=== PATIENT | male | born 1980 | race Caucasian/White ===

== ENCOUNTER 2017-03-28 12:17 | Emergency (ER) | payer MEDICAID, OTHER ==
[2017-03-28 12:25] VITALS: BMI 25.3
[2017-03-28] MEDS ORDERED: Sodium Chloride 0.9% 1,000 ML IV STA (12:29)
--- NOTE | 2017-03-28 12:36 | ED PDOC ---
Arrival/HPI - General Time Seen by Provider: 03/28/17 12:23 Historian: Patient - History of Present Illness Narrative History of Present Illness (Text): 03/28/17 12:25 Moreno Fuller is a 36 year old male who presents to the emergency department for acute onset left sided flank pain starting two hours ago. Patient states pain radiates to the left groin and scrotum. Symptoms are accompanied with nausea but no vomiting or diarrhea. Patient also reports urinary frequency and urgency but no hematuria. Patient denies any fever, trauma, any other complaints , or any history of smoking or drinking. PMD: None Reported. Time/Duration: 1-3 hours Symptom Onset: Sudden Symptom Course: Unchanged Activities at Onset: Light Context: Home Associated Symptoms (Text): 03/28/17 12:46 2 hours of left flank pain with radiation into the left groin and left scrotum. Some nausea but no vomiting or diarrhea. Some urinary symptoms. He has never experienced this previously. Severe distress. Past Medical History - Provider Review Nursing Documentation Reviewed: Yes - Infectious Disease Hx of Infectious Diseases: None - Tetanus Immunization Tetanus Immunization: Unknown - Past Medical History Past Medical History: No Previous - Hematological/Oncological Hx Hepatitis C: Yes - Psychiatric Hx Depression: No Hx Emotional Abuse: No Hx Physical Abuse: No Hx Substance Use: No - Past Surgical History Past Surgical History: No Previous - Surgical History Hx Appendectomy: Yes - Anesthesia Hx Anesthesia: Yes Hx Anesthesia Reactions: No Hx Malignant Hyperthermia: No - Suicidal Assessment Feels Threatened In Home Enviroment: No Family/Social History - Physician Review Nursing Documentation Reviewed: Yes Family/Social History: No Known Family HX Smoking Status: Never Smoked Hx Alcohol Use: Yes Frequency of alcohol use: Socially Hx Substance Use: No Hx Substance Use Treatment: No Allergies/Home Meds Allergies/Adverse Reactions: Allergies No Known Allergies Allergy (Verified 03/28/17 12:30) Review of Systems - Physician Review All systems were reviewed & negative as marked: Yes - Review of Systems Constitutional: Normal. absent: Fevers Respiratory: Normal. absent: SOB, Cough Cardiovascular: Normal. absent: Chest Pain Gastrointestinal: Nausea, Other. absent: Diarrhea, Vomiting Genitourinary Male: Frequency, Other (Urgency). absent: Dysuria, Hematuria Musculoskeletal: Other (Left Sided Flank Pain radiating to the Left Groin and Scrotum) Skin: Normal Neurological: Normal Physical Exam Vital Signs Reviewed: Yes Vital Signs Temp Pulse Resp BP Pulse Ox 03/28/17 12:17 98 F 75 20 135/71 98 Temperature: Afebrile Blood Pressure: Normal Pulse: Regular Respiratory Rate: Normal Appearance: Positive for: Well-Appearing, Non-Toxic, Uncomfortable Pain Distress: Severe Mental Status: Positive for: Alert and Oriented X 3 - Systems Exam Head: Present: Atraumatic, Normocephalic Pupils: Present: PERRL Conjunctiva: Present: Normal Mouth: Present: Moist Mucous Membranes Pharnyx: No: ERYTHEMA, EXUDATE, TONSILS ENLARGED Neck: Present: Normal Range of Motion Respiratory/Chest: Present: Clear to Auscultation, Good Air Exchange. No: Respiratory Distress, Accessory Muscle Use Cardiovascular: Present: Regular Rate and Rhythm, Normal S1, S2. No: Murmurs Abdomen: Present: Normal Bowel Sounds. No: Tenderness, Distention, Peritoneal Signs Upper Extremity: Present: Normal Inspection. No: Cyanosis, Edema Lower Extremity: Present: Normal Inspection. No: Edema Neurological: Present: GCS=15, CN II-XII Intact, Speech Normal, Motor Func Grossly Intact Skin: Present: Warm, Dry, Normal Color. No: Rashes Psychiatric: Present: Alert, Oriented x 3, Normal Insight, Normal Concentration Medical Decision Making ED Course and Treatment: 03/28/17 12:25 Impression: 36 year old male with left flank pain radiating to the left groin and scrotum. Plan: -- Abd & Pel CT -- Labs, Urine Culture, Urinalysis -- IV Fluids -- Toradol -- Zofran -- Reassess and disposition Prior Visits: Notes and results from previous visits were reviewed. Patient was last seen in the emergency department on 01/05/14 for nausea, diarrhea, and abdominal cramps. Progress Notes: 03/28/17 14:05 Symptoms markedly improved. 03/28/17 14:01 Procedure: Abdomen and Pelvis CT Dictator: Kayden Wu MD Impression: Obstructing 5 mm calculus at left ureterovesical junction. Multiple nonobstructing left renal calculi. Solitary nonobstructing right lower pole renal calculus. No other acute abnormality. - Lab Interpretations Lab Results: 03/28/17 12:53 03/28/17 12:53 Lab Results 03/28/17 12:53: Sodium 137, Potassium 4.1, Chloride 104, Carbon Dioxide 26, Anion Gap 11, BUN 15, Creatinine 0.7, Est GFR ( Amer) > 60, Est GFR (Non- Af Amer) > 60, Random Glucose 95, Calcium 9.3, Total Bilirubin 0.8, AST 44, ALT 70 H, Alkaline Phosphatase 87, Total Protein 7.8, Albumin 4.4, Globulin 3.4, Albumin/Globulin Ratio 1.3, Lipase 115 03/28/17 12:53: WBC 4.7, RBC 5.39, Hgb 15.6, Hct 44.0, MCV 81.6, MCH 28.9, MCHC 35.5, RDW 12.6, Plt Count 227, MPV 9.1, Neutrophils % (Manual) 24 L, Lymphocytes % (Manual) 69 H, Atypical Lymphs % 2 H, Monocytes % (Manual) 3, Eosinophils % (Manual) 2 03/28/17 12:38: Urine Color Yellow, Urine Appearance Clear, Urine pH 6.0, Ur Specific [place] >= 1.030, Urine Protein 30 H, Urine Glucose (UA) Negative, Urine Ketones Negative, Urine Blood Trace-intact H, Urine Nitrate Negative, Urine Bilirubin Negative, Urine Urobilinogen 1.0 H, Ur Leukocyte Esterase Negative, Urine RBC 0 - 2, Urine WBC 0 - 2, Ur Epithelial Cells 0 - 2, Urine Bacteria Small I have reviewed the lab results: Yes - RAD Interpretation Narrative RAD Interpretations (Text): 03/28/17 14:01 Procedure: Abdomen and Pelvis CT Dictator: Kayden Wu MD FINDINGS: LOWER THORAX: Unremarkable. LIVER: Unremarkable. No gross lesion or ductal dilatation. GALLBLADDER AND BILE DUCTS: Unremarkable. PANCREAS: Unremarkable. No gross lesion or ductal dilatation. SPLEEN: Unremarkable. ADRENALS: Unremarkable. No mass. KIDNEYS AND URETERS: 4 mm nonobstructing right lower pole renal calculus. Multiple nonobstructing left renal calculi, largest 7 mm. Mild left hydroureter and minimal left hydronephrosis. Obstructing 5 mm calculus at the ureterovesical junction. No renal mass. No right hydronephrosis. VASCULATURE: Unremarkable. No aortic aneurysm. BOWEL: Transverse colonic diverticulosis without evidence of diverticulitis. No bowel obstruction. APPENDIX: Not identified. No secondary findings to suggest acute appendicitis. PERITONEUM: Unremarkable. No free fluid. No free air. LYMPH NODES: Unremarkable. No enlarged lymph nodes. BLADDER: Decompressed REPRODUCTIVE: Normal prostate BONES: No acute fracture. OTHER FINDINGS: None. Impression: Obstructing 5 mm calculus at left ureterovesical junction. Multiple nonobstructing left renal calculi. Solitary nonobstructing right lower pole renal calculus. No other acute abnormality. 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 - Medication Orders Current Medication Orders: Discontinued Medications Sodium Chloride (Sodium Chloride 0.9%) 1,000 mls @ 1,000 mls/hr IV .Q1H STA Stop: 03/28/17 13:28 Last Admin: 03/28/17 12:48 Dose: 1,000 mls/hr Ketorolac Tromethamine (Toradol) 30 mg IVP STAT STA Stop: 03/28/17 12:30 Last Admin: 03/28/17 12:50 Dose: 30 mg Ondansetron HCl (Zofran Inj) 4 mg IVP STAT STA Stop: 03/28/17 12:30 Last Admin: 03/28/17 12:51 Dose: 4 mg - Jossue Statement The provider has reviewed the documentation as recorded by the Jossue Roberson Provider Attestation: All medical record entries made by the Jossue were at my direction and personally dictated by me. I have reviewed the chart and agree that the record accurately reflects my personal performance of the history, physical exam, medical decision making, and the department course for this patient. I have also personally directed, reviewed, and agree with the discharge instructions and disposition. Disposition/Present on Arrival - Present on Arrival Any Indicators Present on Arrival: No History of DVT/PE: No History of Uncontrolled Diabetes: No Urinary Catheter: No History of Decub. Ulcer: No History Surgical Site Infection Following: None - Disposition Have Diagnosis and Disposition been Completed?: Yes Diagnosis: Renal colic on left side, Kidney stone on left side Disposition: HOME/ ROUTINE Disposition Time: 14:06 Patient Plan: Discharge Patient Problems: Current Active Problems Problem Status Onset Kidney stone on left side Acute Renal colic on left side Acute Condition: IMPROVED Discharge Instructions (ExitCare): Renal Colic (ED) Additional Instructions: Increase fluids. Follow-up with urologist. Follow-up in the ER as needed. Prescriptions: oxyCODONE/Acetaminophen [Percocet 5/325 mg Tab] 1 ea PO Q6 #15 tab Ondansetron [Zofran Odt] 4 mg SL Q6 #20 odt Referrals: Jean Paul Gipson, [Primary Care Provider] - Follow up with primary Marcus Max MD [Staff Provider] - Follow up with primary Forms: WORK NOTE
[2017-03-28 12:40] VITALS: TEMP 98
[2017-03-28 12:45] LABS: URINE BILIRUBIN NEGATIVE (NEGATIVE); URINE BLOOD TRACE-INTACT (NEGATIVE); URINE GLUCOSE (UA) NEGATIVE (NEGATIVE); URINE KETONE NEGATIVE (NEGATIVE); URINE LEUKOCYTE ESTERASE NEGATIVE Leu/uL (NEGATIVE); URINE PROTEIN 30 mg/dL (<30 mg/dL)
[2017-03-28 13:02] LABS: URINE APPEARANCE CLEAR (CLEAR); URINE COLOR YELLOW (YELLOW)
[2017-03-28 13:05] LABS: MEAN CELL VOLUME 81.6 fL (80.0-105.0); MEAN CORPUSCULAR HEMOGLOBIN 28.9 pg (25.0-35.0); MEAN CORPUSCULAR HGB CONC 35.5 g/dl (31.0-37.0); MEAN PLATELET VOLUME 9.1 fl (7.0-11.0); PLATELET COUNT 227 10^3/uL (120.0-450.0); RED CELL DISTRIBUTION WIDTH 12.6 % (11.5-14.5); WHITE BLOOD COUNT 4.7 10^3/ul (4.5-11.0)
[2017-03-28 13:07] LABS: ADD MANUAL DIFF? YES
[2017-03-28 13:09] LABS: AST/SGOT 44 U/L (15-59); BLOOD UREA NITROGEN 15 mg/dL (7-21); CALCIUM 9.3 mg/dL (8.4-10.5); GFR AFRICAN-AMERICAN > 60; LIPASE 115 U/L (23-300)
[2017-03-28 13:23] LABS: ATYPICAL LYMPHOCYTE 2 % (0.0-0.0); EOSINOPHIL 2 % (0.0-3.0); NEUTROPHIL 24 % (50.0-70.0)
[2017-03-28 13:26] LABS: URINE BACTERIA SMALL (NEG); URINE EPITHELIAL CELLS 0 - 2 /hpf (0-5); URINE RBC 0 - 2 /hpf (0-2); URINE WBC 0 - 2 /hpf (0-6)
[2017-03-28 13:41] LABS: ALB/GLOB RATIO 1.3 (1.1-1.8); ALKALINE PHOSPHATASE 87 U/L (38-133); ALT/SGPT 70 U/L (7-56); BILIRUBIN,TOTAL 0.8 mg/dL (0.2-1.3); CARBON DIOXIDE 26 mmol/L (21-33); GLUCOSE,RANDOM 95 mg/dL (70-110); POTASSIUM 4.1 mmol/L (3.6-5.0); SODIUM 137 mmol/L (132-148); TOTAL PROTEIN 7.8 g/dL (5.8-8.3)
[2017-03-28 13:42] LABS: CHLORIDE 104 mmol/L (98-107)
--- NOTE | 2017-03-28 14:02 | CT ---
PROCEDURE: CT Abdomen and Pelvis without intravenous contrast HISTORY: left stone run COMPARISON: None. TECHNIQUE: Without contrast.. Contrast Dose: 0 Radiation dose: Total exam DLP = 533.59 mGy-cm. This CT exam was performed using one or more of the following dose reduction techniques: Automated exposure control, adjustment of the mA and/or kV according to patient size, and/or use of iterative reconstruction technique. FINDINGS: LOWER THORAX: Unremarkable. LIVER: Unremarkable. No gross lesion or ductal dilatation. GALLBLADDER AND BILE DUCTS: Unremarkable. PANCREAS: Unremarkable. No gross lesion or ductal dilatation. SPLEEN: Unremarkable. ADRENALS: Unremarkable. No mass. KIDNEYS AND URETERS: 4 mm nonobstructing right lower pole renal calculus. Multiple nonobstructing left renal calculi, largest 7 mm. Mild left hydroureter and minimal left hydronephrosis. Obstructing 5 mm calculus at the ureterovesical junction. No renal mass. No right hydronephrosis. VASCULATURE: Unremarkable. No aortic aneurysm. BOWEL: Transverse colonic diverticulosis without evidence of diverticulitis. No bowel obstruction. APPENDIX: Not identified. No secondary findings to suggest acute appendicitis. PERITONEUM: Unremarkable. No free fluid. No free air. LYMPH NODES: Unremarkable. No enlarged lymph nodes. BLADDER: Decompressed REPRODUCTIVE: Normal prostate BONES: No acute fracture. OTHER FINDINGS: None. IMPRESSION: Obstructing 5 mm calculus at left ureterovesical junction. Multiple nonobstructing left renal calculi. Solitary nonobstructing right lower pole renal calculus. No other acute abnormality.
[2017-03-28 14:50] VITALS: BP 119/71; PULSE 8; RESP 19; O2SAT 99
== END 2017-03-28 14:58 | disposition home or self-care (01) ==
LOC: ED 12:17
DX: N20.0 Calculus of kidney (principal)
CPT/HCPCS: 74176; 80053; 81001; 83690; 85025; 87086; 96374; 96375; 99285; J1885; J2405; J7040